=== PATIENT | female | born 1995 | race African-American/Black ===

== ENCOUNTER 2021-04-07 17:06 | Emergency (ER) | payer OTHER ==
[~2021-04-07] VITALS: Ht 160 cm; Wt 99.8 kg
[2021-04-07 17:23] LABS: URINE BILIRUBIN NEGATIVE (Negative); URINE BLOOD NEGATIVE (Negative); URINE CLARITY CLEAR; URINE COLOR YELLOW; URINE GLUCOSE-RANDOM* NEGATIVE (Negative); URINE KETONES NEGATIVE (Negative); URINE LEUKOCYTES-REFLEX NEGATIVE (Negative); URINE NITRITE-REFLEX NEGATIVE (Negative); URINE PROTEIN (DIPSTICK) NEGATIVE (Negative); URINE SPECIFIC GRAVITY >= 1.030 (1.005-1.035); URINE UROBILINOGEN 0.2 E.U./dl (0.2-1.0)
[2021-04-07] MEDS ORDERED: FLAGYL500 M1 PO (18:13)
[2021-04-07] MEDS ORDERED: DIFLUCAN200 MG PO (18:14)
[2021-04-07 18:17] VITALS: BP 177/93
== END 2021-04-07 18:17 | disposition home or self-care (01) ==
LOC: ER 17:06
PROVIDERS: Physician Assistant
DX: N76.0 Acute vaginitis (principal); I10 Essential (primary) hypertension

== ENCOUNTER 2021-08-03 03:57 | Emergency (ER) | payer OTHER ==
[~2021-08-03] VITALS: Ht 160 cm; Wt 99.8 kg
[~2021-08-03 03:57] MED LIST: DIFLUCAN200 MG PO; FLAGYL500 M1 PO
[2021-08-03 03:59] VITALS: BP 155/102
[2021-08-03] MEDS ORDERED: ORAJEL (04:03)
[2021-08-03] MEDS ORDERED: AMOXICILLIN500 M1 PO (04:32)
[2021-08-03] MEDS ORDERED: HYDROCODON-ACE1 EAC7 PO (04:32)
== END 2021-08-03 04:38 | disposition home or self-care (01) ==
LOC: ER 03:57
DX: K04.7 Periapical abscess without sinus (principal); I10 Essential (primary) hypertension

== ENCOUNTER 2021-08-17 20:00 | Emergency (ER) | payer OTHER ==
[~2021-08-17] VITALS: Ht 160 cm; Wt 99.8 kg
[~2021-08-17 20:00] MED LIST changes: +AMOXICILLIN500 M1 PO; +HYDROCODON-ACE1 EAC7 PO; +ORAJEL
[2021-08-17 20:23] LABS: URINE BILIRUBIN NEGATIVE (Negative); URINE BLOOD NEGATIVE (Negative); URINE CLARITY CLEAR; URINE COLOR YELLOW; URINE GLUCOSE-RANDOM* NEGATIVE (Negative); URINE KETONES NEGATIVE (Negative); URINE LEUKOCYTES-REFLEX NEGATIVE (Negative); URINE NITRITE-REFLEX NEGATIVE (Negative); URINE PROTEIN (DIPSTICK) NEGATIVE (Negative); URINE SPECIFIC GRAVITY >= 1.030 (1.005-1.035); URINE UROBILINOGEN 0.2 E.U./dl (0.2-1.0)
[2021-08-17] MEDS ORDERED: METRONIDAZOLE500 M4 PO (21:24)
[2021-08-17 22:09] VITALS: BP 136/88
== END 2021-08-17 22:16 | disposition home or self-care (01) ==
LOC: ER 20:00
PROVIDERS: Nurse Practitioner Family
DX: N89.8 Other specified noninflammatory disorders of vagina (principal); I10 Essential (primary) hypertension; Z79.899 Other long term (current) drug therapy